=== PATIENT | male | born 1970 | race Caucasian/White ===

== ENCOUNTER 2016-11-29 06:19 | Emergency (ER) | payer BC, MEDICAID ==
[2016-11-29] MEDS ORDERED: Ibuprofen 400 MG TAB ONE (07:22)
== END 2016-11-29 07:37 | disposition home or self-care (01) ==
LOC: ER 06:19
DX: J01.10 Acute frontal sinusitis, unspecified (principal); H92.02 Otalgia, left ear; I10 Essential (primary) hypertension
CPT/HCPCS: 87804; 87880